=== PATIENT | female | born 1995 | race Caucasian/White ===

== ENCOUNTER → 2020-01-18 | Outpatient (CLI) | payer MEDICAID ==
[~2020-01-18] MED LIST: FERR325T23 PO; IBUP-2028 PO
== END | disposition home or self-care (01) ==
LOC: LAB 13:11
PROVIDERS: ATTEND Obstetrics & Gynecology
DX: Z03.818 Encounter for observation for suspected exposure to other biological agents ruled out (principal)
CPT/HCPCS: C9803; U0003

== ENCOUNTER 2020-01-20 06:27 | Inpatient (IN) | payer MEDICAID, OTHER ==
[~2020-01-20] VITALS: Ht 157.5 cm; Wt 108.9 kg
[2020-01-20] MEDS ORDERED: DEXT 5%/LR + PITOCIN 20UNITS/L 1,000 ML IV SCH ×2 (06:50→09:35)
[2020-01-20] MEDS ORDERED: LACTATED RINGERS 1,000 ML IV SCH ×2 (06:50→07:00)
[2020-01-20] MEDS ORDERED: CARBOPROST TROMETHAMINE 250 MCG/ML AMPUL IM PRN (07:00)
[2020-01-20] MEDS ORDERED: METHYLERGONOVINE MALEATE 0.2 MG/ML IM PRN (07:00)
[2020-01-20 07:28] LABS: CLARITY URINE CLOUDY (CLEAR); COLOR URINE YELLOW (YELLOW); KETONES URINE NEGATIVE (NEGATIVE); LEUKOCYTE ESTERASE URINE 1+ (NEGATIVE); NITRITE URINE NEGATIVE (NEGATIVE); OCCULT BLOOD URINE NEGATIVE (NEGATIVE); PH URINE 7.5 (4.5-8.0); PROTEIN URINE 2+ (NEGATIVE); SPECIFIC GRAVITY URINE 1.025 (1.005-1.030)
[2020-01-20 07:29] LABS: BASOPHILS % 1.2 % (0.0-2.0); EOSINOPHILS % 0.8 % (0.0-5.0); HEMATOCRIT. 34.3 % (36.0-48.0); HEMOGLOBIN. 11.6 g/dL (12.0-16.0); LYMPHOCYTES % 20.1 % (20.0-50.0); MEAN CORPUSCULAR HEMOGLOBIN 26.4 pg (28.0-32.0); MEAN CORPUSCULAR VOLUME 78.3 fL (81.0-99.0); MEAN PLATELET VOLUME 9.4 fl (7.4-10.4); MONOCYTES % 8.8 % (2.0-8.0); NEUTROPHILS % 69.1 % (40.0-76.0); PLATELET 252 x1000/uL (130-400); RED BLOOD CELL COUNT 4.39 mill/uL (4.2-5.4); RED CELL DISTRIBUTION WIDTH 16.3 % (11.6-14.6)
[2020-01-20 07:36] LABS: INR 0.9; PARTIAL THROMBOPLASTIN TIME 24.4 sec (23.4-31.0); PROTHROMBIN TIME 9.8 sec (9.6-11.0)
[2020-01-20 07:41] LABS: CHLORIDE 110 mEq/L (98-107)
[2020-01-20 07:53] LABS: *AMPHETAMINES SCREEN URINE NEGATIVE (NEGATIVE); *BARBITURATES SCREEN URINE NEGATIVE (NEGATIVE); *BENZODIAZEPINES SCREEN URINE NEGATIVE (NEGATIVE); *COCAINE SCREEN URINE NEGATIVE (NEGATIVE); METHADONE URINE SCREEN NEGATIVE (NEGATIVE); OPIATES URINE SCREEN NEGATIVE (NEGATIVE)
[2020-01-20 07:54] LABS: CANNABINOID URINE SCREEN NEGATIVE (NEGATIVE); PHENCYCLIDINE URINE SCREEN NEGATIVE (NEGATIVE)
[2020-01-20 08:07] LABS: HEPATITIS B SURFACE ANTIGEN NEGATIVE
[2020-01-20] MEDS ORDERED: CITRIC ACID/SODIUM CITRATE SOLN 30ML UDC PO ONE (08:15)
[2020-01-20] MEDS ORDERED: OXYTOCIN 10 UNITS/ML 1ML ONE ×3 (08:16→09:12)
[2020-01-20] MEDS ORDERED: SODIUM CHLORIDE 0.9% 10ML VIAL ONE (08:17)
[2020-01-20] MEDS ORDERED: METOCLOPRAMIDE HCL 10MG/2ML VIAL ONE (08:17)
[2020-01-20] MEDS ORDERED: CEFAZOLIN SODIUM 1000MG/VIAL ONE (08:17)
[2020-01-20] MEDS ORDERED: ONDANSETRON HCL 4MG/2ML INJ ONE (08:17)
[2020-01-20] MEDS ORDERED: EPHEDRINE SULFATE 50MG/ML VIAL ONE (08:17)
[2020-01-20] MEDS ORDERED: MORPHINE SULFATE/PF 1MG/ML 10ML AMP ONE (08:27)
[2020-01-20] MEDS ORDERED: KETOROLAC 60MG/2ML VIAL IM ONE (09:20)
[2020-01-20] MEDS ORDERED: DIPHENHYDRAMINE 50MG/ML VIAL ONE (09:20)
[2020-01-20] MEDS ORDERED: DEXT 5%/LACTATED RINGERS 1,000 ML IV SCH (09:35)
[2020-01-20] MEDS ORDERED: LANOLIN OINT 7GM TUBE TOP PRN (09:45)
[2020-01-20] MEDS ORDERED: KETOROLAC 30MG/ML VIAL IV SCH (09:45)
[2020-01-20] MEDS ORDERED: ONDANSETRON HCL 4MG/2ML INJ IV PRN ×2 (09:45→10:06)
[2020-01-20] MEDS ORDERED: BISACODYL 10MG SUPP PR PRN (09:45)
[2020-01-20] MEDS ORDERED: HYDROCODONE/ACETAMINOPHEN 5/325MG TABLET PO PRN (09:45)
[2020-01-20] MEDS ORDERED: ACETAMINOPHEN WITH CODEINE 300/30MG TABLET PO PRN (09:45)
[2020-01-20] MEDS ORDERED: MORPHINE SULFATE 10 MG/ML CPJ IV PRN (10:00)
[2020-01-20] MEDS ORDERED: DEXAMETHASONE 10 MG/ML VIAL IV PRN (10:00)
[2020-01-20] MEDS ORDERED: FENTANYL CITRATE/PF 50MCG/ML 2ML VIAL IV PRN ×3 (10:00)
[2020-01-20] MEDS ORDERED: BUTORPHANOL TARTRATE 2 MG/ML VIAL IM PRN (10:00)
[2020-01-20] MEDS ORDERED: MORPHINE SULFATE 2 MG/ML CPJ (NOT FOR IM USE) IV PRN ×2 (10:00)
[2020-01-20] MEDS ORDERED: MEPERIDINE HCL/PF 25MG/ML CPJ IV PRN (10:00)
[2020-01-20] MEDS ORDERED: MISOPROSTOL 200MCG TABLET RC ONE (11:15)
[2020-01-20 11:36] LABS: BASOPHILS % 0.4 % (0.0-2.0); EOSINOPHILS % 0.4 % (0.0-5.0); HEMATOCRIT. 29.6 % (36.0-48.0); HEMOGLOBIN. 10.1 g/dL (12.0-16.0); LYMPHOCYTES % 12.1 % (20.0-50.0); MEAN CORPUSCULAR HEMOGLOBIN 26.8 pg (28.0-32.0); MEAN CORPUSCULAR VOLUME 78.9 fL (81.0-99.0); MEAN PLATELET VOLUME 9.1 fl (7.4-10.4); MONOCYTES % 4.8 % (2.0-8.0); NEUTROPHILS % 82.3 % (40.0-76.0); PLATELET 237 x1000/uL (130-400); RED BLOOD CELL COUNT 3.75 mill/uL (4.2-5.4); RED CELL DISTRIBUTION WIDTH 16.1 % (11.6-14.6)
[2020-01-20] MEDS: MISOPROSTOL 200MCG TABLET PO SCH ×3 (12:59→21:41)
[2020-01-20 13:45] VITALS: BP 119/76
[2020-01-20 14:15] VITALS: BP 121/78
[2020-01-20] MEDS ORDERED: DIPHENHYDRAMINE 50MG/ML VIAL IV PRN (17:00)
[2020-01-20] MEDS ORDERED: KETOROLAC 30MG/ML VIAL IV PRN (17:00)
[2020-01-20] MEDS: SIMETHICONE 80MG TABLET CHEW PO SCH ×2 (17:30→21:42)
[2020-01-20 18:00] VITALS: BP 115/69
[2020-01-20 19:40] VITALS: BP 110/72
[2020-01-20 21:30] VITALS: BP 118/73
[2020-01-20] MEDS: DOCUSATE SODIUM 100MG CAPSULE PO SCH (21:40)
[2020-01-20] MEDS: LABETALOL HCL 200MG TABLET PO SCH (21:40)
[2020-01-21] MEDS: MISOPROSTOL 200MCG TABLET PO SCH ×2 (02:30→07:25)
[2020-01-21 06:30] LABS: BASOPHILS % 0.4 % (0.0-2.0); EOSINOPHILS % 0.7 % (0.0-5.0); HEMATOCRIT. 22.4 % (36.0-48.0); HEMOGLOBIN. 7.7 g/dL (12.0-16.0); LYMPHOCYTES % 14.6 % (20.0-50.0); MEAN CORPUSCULAR VOLUME 78.8 fL (81.0-99.0); MEAN PLATELET VOLUME 8.8 fl (7.4-10.4); MONOCYTES % 5.5 % (2.0-8.0); NEUTROPHILS % 78.8 % (40.0-76.0); PLATELET 175 x1000/uL (130-400); RED BLOOD CELL COUNT 2.84 mill/uL (4.2-5.4); RED CELL DISTRIBUTION WIDTH 16.3 % (11.6-14.6)
[2020-01-21 06:40] VITALS: BP 115/70
[2020-01-21] MEDS: IBUPROFEN 400MG TABLET PO PRN ×2 (07:26→17:27)
[2020-01-21 09:00] VITALS: BP 113/61
[2020-01-21] MEDS: LABETALOL HCL 200MG TABLET PO SCH ×2 (09:07→21:13)
[2020-01-21] MEDS: SIMETHICONE 80MG TABLET CHEW PO SCH ×4 (09:08→21:13)
[2020-01-21] MEDS: FERROUS SULFATE 325MG TABLET PO SCH ×3 (09:08→17:21)
[2020-01-21] MEDS: PRENATAL VIT/FE FUMARATE/FA TABLET PO SCH (09:08)
[2020-01-21] MEDS ORDERED: MISOPROSTOL 200MCG TABLET PO NR (11:30)
[2020-01-21 16:05] VITALS: BP 116/72
[2020-01-21 20:00] VITALS: BP 120/65
[2020-01-21] MEDS: DOCUSATE SODIUM 100MG CAPSULE PO SCH (21:12)
[2020-01-22] VITALS: BP 115/61
[2020-01-22 04:00] VITALS: BP 111/55
[2020-01-22] MEDS ORDERED: FERR325T23 PO (06:09)
[2020-01-22] MEDS ORDERED: IBUP-2028 PO (06:09)
[2020-01-22 07:45] VITALS: BP 128/82
[2020-01-22 09:00] VITALS: BP 128/87
[2020-01-22] MEDS: PRENATAL VIT/FE FUMARATE/FA TABLET PO SCH (09:00)
[2020-01-22] MEDS: FERROUS SULFATE 325MG TABLET PO SCH (09:00)
[2020-01-22] MEDS: LABETALOL HCL 200MG TABLET PO SCH (09:00)
[2020-01-22] MEDS: IBUPROFEN 400MG TABLET PO PRN (13:10)
== END 2020-01-22 12:30 | disposition home or self-care (01) | DRG 540 ==
LOC: 8 EST LDRP 06:27 → OBSVTOIN 06:27 → 8 EST LDRP 06:40 → 8EST 13:20
PROVIDERS: ADMIT Obstetrics & Gynecology; ATTEND Obstetrics & Gynecology
PROC: 10D00Z1 Extraction of Products of Conception, Low, Open Approach (ICD-10-PCS; principal; 2020-01-20)
DX: O14.94 Unspecified pre-eclampsia, complicating childbirth (principal); D64.9 Anemia, unspecified; O34.211 Maternal care for low transverse scar from previous cesarean delivery; Z37.0 Single live birth; O77.9 Labor and delivery complicated by fetal stress, unspecified; Z3A.38 38 weeks gestation of pregnancy; O99.03 Anemia complicating the puerperium
CPT/HCPCS: 36415; 80053; 80305; 81003; 84550; 85025; 85384; 86592; 86703; 86762; 86850; 86900; 87340; 88307; J0690; J1200; J1885; J2274; J2405; J2590; J2765; J3490; J7120; J7121